=== PATIENT | male | born 1985 | race Caucasian/White ===

== ENCOUNTER 2019-11-23 20:10 | Emergency (ER) | payer SELFPAY ==
[~2019-11-23 20:10] MED LIST: Iopamidol-370 76% 500 ML 1 ML ONE
[2019-11-23 20:42] LABS: #Monocytes 0.4 thou/uL (0.11-0.59); #Neutrophils 2.9 thou/uL (1.40-6.50); %Basophils 0.7 % (0.0-1.0); %Eosinophils 0.4 % (0.0-10.0); %Lymphocytes 23.9 % (21.0-51.0); %Monocytes 8.5 % (0.0-10.0); %Neutrophils 66.4 % (42.0-75.0); Hemoglobin 16.6 g/dL (14.0-18.0); Mean Corpuscular HGB CONC 34.3 g/dL (32.0-36.0); Mean Corpuscular Hemoglobin 33.7 pg (27.0-31.0); Mean Corpuscular Volume 98.4 fL (78.0-98.0); Mean Platelet Volume 6.8 fL (7.4-10.4); Platelet Count 83 thou/uL (130-400); RBC Distribution Width 11.1 % (11.5-14.5); Red Blood Cell (RBC) Count 4.93 mill/uL (4.70-6.10); White Blood Cell (WBC) Count 4.3 thou/uL (4.8-10.8)
--- NOTE | 2019-11-23 20:50 | RAD ---
ONE VIEW CHEST: 11/23/19 HISTORY: Syncope. COMPARISON: None. FINDINGS: The cardiac silhouette and pulmonary vasculature are within normal limits for the portable technique of the study. The lungs are clear. Osseous structures have a normal appearance. IMPRESSION: No acute cardiopulmonary process. POS: YOLANDA
--- NOTE | 2019-11-23 21:00 | CT ---
CT HEAD WITHOUT CONTRAST: 11/23/19 HISTORY: Syncope. Ventricles have normal size and position. There is no evidence of intracranial mass or hemorrhage. No evidence of edema or infarct. Sinuses appear clear. IMPRESSION: No acute process. POS: AGW
[2019-11-23 21:05] LABS: ALT (SGPT) 102 U/L (8-55); AST (SGOT) 93 U/L (5-34); Albumin 4.4 g/dL (3.5-5.0); Alkaline Phosphatase 82 U/L (40-110); Anion Gap 24 mmol/L (10-20); BUN (Urea Nitrogen) 8 mg/dL (8.9-20.6); Bilirubin, Total 2.9 mg/dL (0.2-1.2); CK (CPK) 184 U/L (30-200); Calc. Creatinine Clearance 0 mL/min (70-130); Calcium 10.1 mg/dL (7.8-10.44); Carbon Dioxide 14 mmol/L (22-29); Chloride 95 mmol/L (98-107); Estimated GFR-MDRD Greater than 90; Globulin 3.6 g/dL (2.4-3.5); Glucose 123 mg/dL (70-105); Lipase 426 U/L (8-78); Potassium 3.8 mmol/L (3.5-5.1); Sodium 129 mmol/L (136-145)
[2019-11-23 21:08] LABS: Acetaminophen Less than 6.0 mcg/mL (10.0-30.0); Alcohol Less than 10 mg/dL (Less than 10); Salicylate Less than 8.0 mg/dL (15.0-30.0)
[2019-11-23 21:42] LABS: Bacteria/HPF None Seen HPF (None Seen); Bilirubin Negative (Negative); Blood, Urine 2+ (Negative); Clarity Clear (Clear); Glucose, Urine (Dipstick) Normal (Negative); Leukocyte Negative Leu/uL (Negative); Mucous/LPF 1+ LPF (<2+); Nitrite Negative (Negative); Protein, Urine (Dipstick) 200 mg/dL (Neg-Trace); Squamous Epithelial None Seen HPF (0-3); Urobilinogen 6 mg/dL (Less than 2); WBC/HPF 0-3 HPF (0-3)
[2019-11-23 21:47] LABS: Cocaine Metabolite Screen Not Detected (NotDetected); Medtox Reader # READER 1; Methamphetamine Not Detected (NotDetected); Opiate Screen Not Detected (NotDetected); Phencyclidine (PCP) Not Detected (NotDetected); THC/Cannabinoid Screen Not Detected (NotDetected)
[2019-11-23 21:48] LABS: Amphetamine Not Detected (NotDetected); Barbiturates Screen Not Detected (NotDetected); Benzodiazepine Screen Not Detected (NotDetected); Medtox Control Line Valid? VALID (VALID); Methadone Not Detected (NotDetected); Oxycodone Screen Not Detected (NotDetected); Tricyclic Screen Not Detected (NotDetected)
--- NOTE | 2019-11-24 07:30 | CT ---
CTA CHEST WITH CONTRAST: Axial tomograms were obtained following a pulmonary angio protocol with multiplanar reconstruction an d 3D postprocessing. INDICATION: Syncope. Elevated D-dimer. FINDINGS: Pulmonary arteries show adequate opacification. There is no evidence of pulmonary embolus. Thoracic aorta is unremarkable. Mediastinum unremarkable. The lungs are clear of infiltrate. No effusion. Images through the upper abdomen show evidence of hepatic steatosis. IMPRESSION: 1. No evidence of pulmonary embolus. 2. No acute lung process. POS: AGW
--- NOTE | 2019-11-24 14:33 | EKG ---
Test Reason : Blood Pressure : / mmHG Vent. Rate : 081 BPM Atrial Rate : 081 BPM P-R Int : 160 ms QRS Dur : 084 ms QT Int : 378 ms P-R-T Axes : 032 042 028 degrees QTc Int : 439 ms Normal sinus rhythm Normal ECG Confirmed by MANDY BOLTON, MAURA ([id number]), primer expeditor and drier KANDIS WINKLER ([id number]) on 11/24/2019 2:33:15 PM Referred By: Confirmed By:MAURA GALVAN MD
== END 2019-11-23 22:55 | disposition home or self-care (01) ==
LOC: ERS 20:10
DX: R55 Syncope and collapse (principal); K76.0 Fatty (change of) liver, not elsewhere classified; R79.89 Other specified abnormal findings of blood chemistry
CPT/HCPCS: 70450; 71045; 71275; 80053; 80306; 80307; 81003; 81015; 82550; 83690; 84146; 84443; 84484; 85025; 85379; 93005; 96360; Q9967

== ENCOUNTER 2019-12-25 17:00 | Inpatient (IN) | payer SELFPAY ==
[2019-12-25] MEDS ORDERED: Ondansetron PF 4 MG/2 ML Vial ONE (17:37)
[2019-12-25] MEDS ORDERED: Lorazepam 2 MG/ML VIAL ONE (17:37)
[2019-12-25] MEDS ORDERED: chlordiazePOXIDE HCl 25 MG CAP ONE (17:37)
[2019-12-25] MEDS ORDERED: Multivitamins, Adult 10 ML, Thiamine HCl 100 MG, Folic Acid 1 MG in Dextrose 5 %-0.45 %... IV SCH (18:00)
[2019-12-25 18:23] LABS: #Lymphocytes 0.7 thou/uL (1.20-3.40); #Monocytes 0.2 thou/uL (0.11-0.59); #Neutrophils 2.9 thou/uL (1.40-6.50); %Basophils 0.4 % (0.0-1.0); %Eosinophils 0.1 % (0.0-10.0); %Lymphocytes 17.9 % (21.0-51.0); %Neutrophils 76.6 % (42.0-75.0); Hemoglobin 16.3 g/dL (14.0-18.0); Mean Corpuscular HGB CONC 34.5 g/dL (32.0-36.0); Mean Corpuscular Volume 95.7 fL (78.0-98.0); Mean Platelet Volume 8.9 fL (7.4-10.4); Platelet Count 50 thou/uL (130-400); RBC Distribution Width 11.4 % (11.5-14.5); Red Blood Cell (RBC) Count 4.93 mill/uL (4.70-6.10); White Blood Cell (WBC) Count 3.8 thou/uL (4.8-10.8)
[2019-12-25 18:42] LABS: ALT (SGPT) 88 U/L (8-55); AST (SGOT) 99 U/L (5-34); Albumin 4.4 g/dL (3.5-5.0); Alkaline Phosphatase 96 U/L (40-110); Anion Gap 21 mmol/L (10-20); BUN (Urea Nitrogen) 12 mg/dL (8.9-20.6); Calc. Creatinine Clearance 0 mL/min (70-130); Calcium 10.2 mg/dL (7.8-10.44); Carbon Dioxide 21 mmol/L (22-29); Chloride 92 mmol/L (98-107); Estimated GFR-MDRD 89; Globulin 4.2 g/dL (2.4-3.5); Glucose 133 mg/dL (70-105); Lipase 407 U/L (8-78); Magnesium 1.7 mg/dL (1.6-2.6); Potassium 3.5 mmol/L (3.5-5.1); Protein, Total 8.6 g/dL (6.0-8.3); Sodium 130 mmol/L (136-145)
[2019-12-25 18:44] LABS: Acetaminophen Less than 6.0 mcg/mL (10.0-30.0); Alcohol Less than 10 mg/dL (Less than 10); Salicylate Less than 8.0 mg/dL (15.0-30.0)
--- NOTE | 2019-12-25 20:04 | CT ---
CT BRAIN WITHOUT CONTRAST: History: Altered mental status Comparison: 11-23-2019 FINDINGS: No acute hemorrhage or infarct. No midline shift of mass effect. Ventricular size and extraaxial CSF spaces are normal. Calvarium is intact. The paranasal sinuses and mastoids are relatively clear aside from small volume fluid in the left mastoids. IMPRESSION: No acute intracranial abnormality. POS: HOME
[2019-12-25 20:27] LABS: PTT 27.3 sec (22.9-36.1); Prothrombin Time 13.1 sec (12.0-14.7)
--- NOTE | 2019-12-25 20:49 | CT ---
CT ABDOMEN AND PELVIS WITH CONTRAST: History: Pancreatitis Comparison: None FINDINGS: Lung bases appear relatively clear. No pericardial effusion. Diffuse hepatic steatosis, high grade. Mild fatty atrophy of the pancreatic tail. Chronic appearing f at inflammation adjacent to the pancreatic tail, might be from prior bouts of pancreatitis. No hydron ephrosis. The aortoiliac contour is non-aneurysmal. No dilated loops of large or small bowel. Moderate left L5-S1 facet joint changes. There are compression deformities of the mid and lower thoracic spine. These are incomplete burst fra ctures. IMPRESSION: 1. Mild scarring of the peripancreatic fat around the pancreatic tail with pancreatic tail atrophy du e to prior bouts of pancreatitis. 2. Diffuse hepatic steatosis. 3. Incompletely evaluated healing thoracic spine fractures, incomplete burst fractures. POS: HOME
[2019-12-25 21:02] LABS: Bacteria/HPF None Seen HPF (None Seen); Bilirubin 1+ (Negative); Blood, Urine 1+ (Negative); Clarity Clear (Clear); Glucose, Urine (Dipstick) Normal (Negative); Leukocyte Negative Leu/uL (Negative); Mucous/LPF Rare LPF (<2+); Nitrite Negative (Negative); Protein, Urine (Dipstick) 50 mg/dL (Neg-Trace); Squamous Epithelial None Seen HPF (0-3); Urobilinogen 6 mg/dL (Less than 2); WBC/HPF 0-3 HPF (0-3)
[2019-12-25 21:09] LABS: Amphetamine Not Detected (NotDetected); Barbiturates Screen Not Detected (NotDetected); Benzodiazepine Screen Detected (NotDetected); Cocaine Metabolite Screen Not Detected (NotDetected); Medtox Reader # READER 4; Methadone Not Detected (NotDetected); Methamphetamine Not Detected (NotDetected); Opiate Screen Not Detected (NotDetected); Oxycodone Screen Not Detected (NotDetected); Phencyclidine (PCP) Not Detected (NotDetected); THC/Cannabinoid Screen Not Detected (NotDetected); Tricyclic Screen Not Detected (NotDetected)
[2019-12-25 21:10] LABS: Medtox Control Line Valid? VALID (VALID)
[2019-12-25] MEDS ORDERED: Acetaminophen 325 MG TAB PO PRN (21:33)
[2019-12-25] MEDS ORDERED: Bisacodyl 5 MG TAB PO PRN (21:33)
[2019-12-25] MEDS ORDERED: Senokot S 8.6-50 MG TAB PO PRN (21:33)
[2019-12-25] MEDS ORDERED: Calcium Carbonate 500 MG ChewTAB PO PRN (21:33)
[2019-12-25] MEDS ORDERED: Lorazepam 2 MG/ML VIAL SLOW IVP PRN (21:40)
[2019-12-25] MEDS ORDERED: Ondansetron PF 4 MG/2 ML Vial IVP PRN (21:42)
[2019-12-25] MEDS ORDERED: Diazepam 5 MG TAB PO PRN (21:56)
[2019-12-25] MEDS ORDERED: Thiamine HCl 200 MG/2 ML VIAL IM SCH (22:00)
[2019-12-25 22:34] VITALS: BMI 32.6
--- NOTE | 2019-12-25 23:02 | HP ---
PRIMARY CARE PHYSICIAN: Daniel Delgado MD CHIEF COMPLAINT: Seizures x2. HISTORY OF PRESENT ILLNESS: The patient is a 34-year-old male with a past medical history significant for alcohol abuse who presents to the ER for the above complaint. Majority of the HPI was taken from the patient's mother at bedside. The mother reports that the patient had 2 seizure-like episodes today, while at home. She reports that the patient would yell and scream, shake his hands in the air and start foaming at the mouth. She reports that this activity lasted approximately 20 seconds. After this activity, the patient would be "out of it for approximately 20 minutes," after which he return to baseline function. Mother also reports that the patient has been falling more frequently at home. Some of these falls were unwitnessed. She would hear him scream out, hear a "thud", then find him on the floor at home. She also reports multiple bruises and contusions all over his body. Mother reports the patient has a strong history of alcohol abuse. She reports that he has been drinking approximately half a bottle of Tequila per day for the past several days. Last drink she thinks was in the last 36 hours to 48 hours. The patient denies drinking Tequila. He admits to drinking 12 beers per day. He reports that he used to drink [place] and he has switch to a beer called Boone because of it's high alcohol content of 6%. The patient reports associated nausea and vomiting over the past several days. He has had some decreased appetite and decreased oral intake. Denies headache or neck pain. Denies chest pain or heart palpitations. Denies abdominal pain or diarrhea. In the ER, the patient's vital signs were taken. The patient was found to be tachycardic in the 130s and tachypneic with respiratory rate of 24, and 98% on room air. He was afebrile. EKG showed sinus tachycardia with a heart rate of 107. CT of the head was negative for any acute intracranial process. CT of the abdomen showed mild scarring of the peripancreatic fat around the pancreatic tail with pancreatic tail atrophy due to prior bouts of pancreatitis. It also showed diffuse hepatic steatosis and it showed incompletely evaluated healing thoracic spine fractures, incomplete burst fractures. The patient's lipase was 407. The patient's blood alcohol was less than 10. Had a magnesium of 1.7 and sodium of 130. LFTs were within normal range, and platelets of 50. The patient was given a banana bag, Librium, Ativan, Zofran and a liter of fluid. ALLERGIES: NO KNOWN DRUG ALLERGIES. HOME MEDICATIONS: There are no home medications. PAST MEDICAL HISTORY: Alcohol abuse. PAST SURGICAL HISTORY: No surgical history. SOCIAL HISTORY: The patient lives with his parents. He is unemployed, living at home. He is a heavy drinker, about a half a bottle of Tequila per day and a 12 pack of beer per day. Denies any tobacco or smoking history. Denies any illicit drug use. He ambulates without any assistive devices. FAMILY HISTORY: Family history is noncontributory to this case. REVIEW OF SYSTEMS: All other review of systems are negative unless otherwise noted in the HPI. PHYSICAL EXAMINATION: VITAL SIGNS: Temperature 97.6, blood pressure 120/91, heart rate of 130, respirations 24, and 98% on room air. EKG was sinus tach at 107. Constitutional: Alert, oriented to person, place and time. Mildly agitated. No acute distress. Head: atraumatic, normocephalic Eyes: PERRL, EOMI, sclera non icteric ENT: patent nares, oropharynx clear, uvula midline, MMM Neck: supple, trachea midline Respiratory/Chest: RR even and unlabored, non wheezes, rhonchi or rales Cardiovascular: Sinus tachycardia, no murmurs rubs or gallops Abdomen: soft, non tender, active BS, no guarding, no rigidity Back: No CVAT, normal ROM Upper extremities: normal ROM, normal sensation, palpable radial pulses Lower extremities: normal ROM, normal sensation, palpable pedal pulses Neuro: Flat affect, mildly agitated, CNII-VII intact. Skin: multiple abrasions and bruising to shoulders, elbows, knees and shins. DIAGNOSTIC STUDIES: CT of the brain was negative for any acute process. CT of the abdomen showed some mild scarring of the peripancreatic fat around the pancreatic tail with pancreatic tail atrophy due to prior bouts of pancreatitis and it showed some diffuse hepatic steatosis. The patient's blood alcohol was less than 10. Lipase was 407. Sodium was 130, potassium 3.5, chloride 92, CO2 of 21, BUN 12, creatinine 0.98, glucose 133, GFR of 89, alkaline phosphatase 96, AST 99, ALT 88 , and mag 1.7. PT 13.1, PTT 27.3, and INR 1.0. UA had ketones 1+ blood, 1+ bilirubin, 6 urobilinogen, 4 to 6 rbc's, and specific gravity 1.030. His urine toxicology, acetaminophen level, and salicylate levels were unremarkable. IMPRESSION AND PLAN: 1. Alcohol withdrawal. We will admit the patient to telemetry floor inpatient status. Expected length of stay greater than 2 midnights. The patient presented tachycardic and tachypneic and slightly agitated per ER report. Upon exam, he was calm. Mother reports last drink was in the last 36 to 48 hours. The patient's alcohol level was less than 10. We will initiate ASE protocol. Give IV fluids and banana bag. We will check B12, thiamine, and folate levels. We will start B12, thiamine, folate, and multivitamins. We will initiate seizure precautions and fall precautions. We will give scheduled Librium and will have Ativan p.r.n. We will consult Case Management. 2. Seizures likely related to alcohol withdrawal. The patient has no history of prior seizure activity with any alcohol cessation. CT of the brain was negative for any acute abnormality, intracranial abnormality. We will initiate seizure & fall precautions. We will have Ativan p.r.n. for seizures. 3. Pancreatitis. likely alcohol induced. Upon exam, the patient in no acute distress. Abdomen is soft and nontender. CT of the abdomen did show some mild scarring of the peripancreatic fat around the pancreatic tail and some pancreatic tail atrophy from prior bouts of pancreatitis, also showed some hepatic steatosis. The patient presented with a lipase level of 407. We will make the patient n.p.o. We will give IV fluids. We will give analgesia as needed p.r.n. We will get a right upper quadrant ultrasound. We will check a fasting lipid in the a.m. and recheck a lipase in the a.m. 4. Hyponatremia, mild. The patient had a sodium of 130. We will give IV fluids and recheck level in the a.m. 5. Hypomagnesium, relatively low at 1.7. The patient will replace magnesium per [facility] protocol and we will recheck level in the a.m. 6. Thrombocytopenia. Platelets were 50,000. LFTs within normal range. INR was within normal range. No pharmaco deep venous thrombosis prophylaxis. We will use SCDs for deep venous thrombosis prophylaxis. We will recheck CBC in a.m. 7. Consult physical therapy. No pharmaco deep venous thrombosis prophylaxis. SCDs for deep venous thrombosis prophylaxis. Protonix for gastrointestinal prophylaxis. The patient is a full code. His MPOA is his mother, Gillian Messina, her #[phone]. 8. Discussed the case with Dr. Aleman. Job ID: [id number] [facility] HOSPITALPavel
[2019-12-25] MEDS: Sodium Chloride 0.9% 1,000 ML IV SCH (23:37)
[2019-12-26] MEDS: Lorazepam 2 MG/ML VIAL SLOW IVP PRN ×2 (02:36→13:01)
[2019-12-26] MEDS: Diazepam 5 MG TAB PO PRN ×3 (04:12→11:24)
[2019-12-26 04:54] LABS: #Lymphocytes 0.6 thou/uL (1.20-3.40); #Monocytes 0.2 thou/uL (0.11-0.59); #Neutrophils 1.9 thou/uL (1.40-6.50); %Basophils 0.7 % (0.0-1.0); %Eosinophils 0.5 % (0.0-10.0); %Lymphocytes 21.7 % (21.0-51.0); %Monocytes 7.1 % (0.0-10.0); Hemoglobin 14.1 g/dL (14.0-18.0); Mean Corpuscular HGB CONC 33.5 g/dL (32.0-36.0); Mean Corpuscular Hemoglobin 32.4 pg (27.0-31.0); Mean Corpuscular Volume 96.7 fL (78.0-98.0); Mean Platelet Volume 8.5 fL (7.4-10.4); Platelet Count 44 thou/uL (130-400); RBC Distribution Width 11.2 % (11.5-14.5); Red Blood Cell (RBC) Count 4.34 mill/uL (4.70-6.10); White Blood Cell (WBC) Count 2.7 thou/uL (4.8-10.8)
[2019-12-26 05:02] LABS: ALT (SGPT) 63 U/L (8-55); AST (SGOT) 63 U/L (5-34); Albumin 3.8 g/dL (3.5-5.0); Alkaline Phosphatase 74 U/L (40-110); Anion Gap 15 mmol/L (10-20); BUN (Urea Nitrogen) 10 mg/dL (8.9-20.6); Bilirubin, Total 2.5 mg/dL (0.2-1.2); Calc. Creatinine Clearance 228 mL/min (70-130); Carbon Dioxide 23 mmol/L (22-29); Cardiac Risk 1.9 (Less than 4.5); Chloride 97 mmol/L (98-107); Cholesterol 121 mg/dl (< 200 Desired); Estimated GFR-MDRD Greater than 90; Globulin 3.2 g/dL (2.4-3.5); Glucose 86 mg/dL (70-105); HDL Cholesterol 64 mg/dL (>60 Neg Risk); LDL Cholesterol, Calculated 47 mg/dL; Lipase 292 U/L (8-78); Sodium 132 mmol/L (136-145); Triglycerides 51 mg/dL (Less than 150)
[2019-12-26 05:07] LABS: Potassium 2.8 mmol/L (3.5-5.1)
[2019-12-26] MEDS: Potassium Chloride 20 MEQ in Premix Bag 1 BAG IVPB SCH ×2 (05:33→08:22)
[2019-12-26] MEDS: Multivit, Chewable SF 1 TAB PO SCH (08:19)
[2019-12-26] MEDS: chlordiazePOXIDE HCl 25 MG CAP PO SCH ×3 (08:19→20:32)
[2019-12-26] MEDS: Thiamine 100 MG TAB PO SCH (08:19)
[2019-12-26] MEDS: Magnesium Oxide 400 MG TAB PO SCH (08:19)
[2019-12-26] MEDS: Cyanocobalamin (Vitamin B-12) 1,000 MCG TAB PO SCH (08:20)
[2019-12-26] MEDS: Folic Acid 1 MG TAB PO SCH (08:20)
[2019-12-26] MEDS: Sodium Chloride 0.9% 1,000 ML IV SCH ×2 (08:28→20:32)
[2019-12-26] MEDS: Pantoprazole 40 MG VIAL IVP SCH (08:47)
--- NOTE | 2019-12-26 08:59 | ULT ---
GALLBLADDER ULTRASOUND: Date: 12/26/2019 HISTORY: Right upper quadrant pain. FINDINGS: Real-time imaging of the right upper quadrant shows echogenic nonshadowing material within the gallbl adder, compatible with sludge. Common duct is 5.0 mm. Liver measures 21.7 cm in length and is of diff use increased echogenicity. Right kidney is normal in size and not obstructed. Pancreas is obscured. IMPRESSION: 1. Gallbladder sludge. Technologist reports a negative ultrasound Rousseau's sign. 2. Diffuse fatty changes of a slightly enlarged liver. POS: ADRIANA
[2019-12-26] MEDS ORDERED: Haloperidol Lactate 5 MG/ML VIAL SLOW IVP PRN (14:38)
--- NOTE | 2019-12-26 14:58 | PDOC.HOSPP ---
- Subjective Encounter Date: 12/26/19 Subjective: Feels ok. Denies problems. Had not eaten due to the abd us and pancreatitis. Denies abd pain. - Objective Vital Signs & Weight: Vital Signs (12 hours) Temp Pulse Resp BP BP BP Pulse Ox 12/26/19 13:59 99.7 F H 100 25 H 124/7 L 97 12/26/19 11:09 99.5 F 97 16 131/86 131/86 100 12/26/19 08:12 98.0 F 102 H 19 135/94 H 135/94 H 99 12/26/19 03:30 116/70 12/26/19 03:09 98.4 F 100 14 116/70 98 Weight Admit Weight 254 lb 3.2 oz Weight 254 lb 3.2 oz Result Diagrams: 12/26/19 04:21 12/26/19 04:21 Hospitalist ROS - Medication Medications: Active Medications Generic Name Dose Route Start Last Admin Trade Name Freq PRN Reason Stop Dose Admin Chlordiazepoxide HCl 25 mg 12/26/19 09:00 12/26/19 08:19 Librium PO 25 mg TID PAIRSA Administration Cyanocobalamin 1,000 mcg 12/26/19 09:00 12/26/19 08:20 Vitamin B-12 PO 1,000 mcg DAILY PARISA Administration Diazepam 5 mg 12/26/19 04:00 12/26/19 11:24 Valium PO 5 mg Q4H PRN Administration FOR ASE 10 OR GREATER Folic Acid 1 mg 12/26/19 09:00 12/26/19 08:20 Folvite PO 1 mg DAILY PARISA Administration Haloperidol Lactate 5 mg 12/26/19 14:38 12/26/19 14:46 Haldol SLOW IVP 5 mg Q4H PRN Administration Agitation Sodium Chloride 1,000 mls @ 125 mls/hr 12/25/19 21:45 12/26/19 08:28 Normal Saline 0.9% IV 1,000 mls .Q8H PARISA Administration Lorazepam 2 mg 12/25/19 21:41 12/26/19 13:01 Ativan SLOW IVP 2 mg Q4H PRN Administration Anxiety/Agitation Magnesium Oxide 400 mg 12/26/19 09:00 12/26/19 08:19 Magnesium Oxide PO 400 mg DAILY PARISA Administration Multivitamins 1 tab 12/26/19 09:00 12/26/19 08:19 Multivit, Chewable Sf PO 1 tab DAILY PARISA Administration Pantoprazole Sodium 40 mg 12/26/19 09:00 12/26/19 08:47 Protonix IVP 40 mg DAILY PARISA Administration Thiamine HCl 100 mg 12/26/19 09:00 12/26/19 08:19 Thiamine PO 100 mg DAILY PARISA Administration - Exam General Appearance: NAD, awake alert Heart: RRR, no murmur, no gallops, no rubs, normal peripheral pulses Respiratory: CTAB, no wheezes, no rales, no ronchi, normal chest expansion, no tachypnea, normal percussion Gastrointestinal: soft, non-tender, non-distended, normal bowel sounds, no palpable masses, no hepatomegaly, no splenomegaly, no bruit Extremities: no cyanosis, no clubbing, no edema Skin: normal turgor Neurological: no focal deficits Neurological - other findings: Shaky. Very slightly confused. Musculoskeletal: generalized weakness Psychiatric - other findings: a little anxious. Hosp A/P (1) Alcohol withdrawal Code(s): F10.239 - ALCOHOL DEPENDENCE WITH WITHDRAWAL, UNSPECIFIED Status: Acute (2) Alcohol withdrawal seizure Code(s): F10.239 - ALCOHOL DEPENDENCE WITH WITHDRAWAL, UNSPECIFIED; R56.9 - UNSPECIFIED CONVULSIONS Status: Acute (3) Thrombocytopenia Code(s): D69.6 - THROMBOCYTOPENIA, UNSPECIFIED Status: Acute (4) Pancreatitis Code(s): K85.90 - ACUTE PANCREATITIS WITHOUT NECROSIS OR INFECTION, UNSP Status: Acute (5) Compression fracture of thoracic vertebra Code(s): S22.000A - WEDGE COMPRESSION FRACTURE OF UNSP THORACIC VERTEBRA, INIT Status: Acute (6) Hyponatremia Code(s): E87.1 - HYPO-OSMOLALITY AND HYPONATREMIA Status: Acute (7) Alcoholic fatty liver Code(s): K70.0 - ALCOHOLIC FATTY LIVER Status: Acute - Plan ETOH W/D: Patient reports heavy alcohol use since he was in college. Continue ASE protocol, Librium. PRN Bzd's. B12 and Folate levels were normal. Continue supplements. W/D seizures: No anti-epileptics indicated. Continue Bzd's. Pancreatitis: Seems to be asymptomatic. Evidence of prior bouts on CT. May have a chronic component. Lipase is coming down. Try some clear liquids. Thrombocytopenia: Secondary to EtOH abuse. Compression Fx of T spine: Presumably related to falls. Will need MRI when stable to rule out other pathology. Very young to have compression fractures. Will check vitamin D level. Do not sound unstable. Alcoholism: Long discussion with the patient and his mother who is in the room as well. Discussed the risks of W/D, DT's. Will take a little time to get through this. Explained the damage to the liver and the pancreas. Prognosis will be poor if he does not quit now. Seems interested in quitting, but not sure he is committed to it. Will have CM discuss available resources when he is more stable.
--- NOTE | 2019-12-26 15:41 | CT ---
CT HEAD WITHOUT IV CONTRAST COMPARISON: 12/25/2019 HISTORY: Injury after fall. Patient very agitated, altered mental status. TECHNIQUE: Axial CT imaging at 5 mm intervals from vertex through skull base without contrast FINDINGS: There is no evidence of an acute infarction, hemorrhage, mass effect, or midline shift. The ventricul ar system is normal in size, shape, and position. Mucosal thickening is seen in the left maxillary antrum as well as in a few ethmoidal air cells. Osseous structures appear intact. There has been no significant interval change when compared to the recent study on 12/25/2019. IMPRESSION: 1. No acute intracranial abnormality demonstrated.
--- NOTE | 2019-12-26 22:06 | PDOC.EVN ---
Event Note - Event Note Event Note: Patient became more anxious and agitated. ASE protocol PRN's used. Patient got out of bed on his own and reportedly fell. No witnessed injury, but patient indicated he hit his head. CT was ordered. Became combative and required restraints. Haldol was ordered and worked well. Patient was able to get the CT done. CT was unremarkable.
[2019-12-27 04:42] LABS: ALT (SGPT) 49 U/L (8-55); AST (SGOT) 42 U/L (5-34); Albumin 3.5 g/dL (3.5-5.0); Alkaline Phosphatase 72 U/L (40-110); Anion Gap 15 mmol/L (10-20); BUN (Urea Nitrogen) 8 mg/dL (8.9-20.6); Bilirubin, Total 2.1 mg/dL (0.2-1.2); Calc. Creatinine Clearance 254 mL/min (70-130); Calcium 8.9 mg/dL (7.8-10.44); Carbon Dioxide 21 mmol/L (22-29); Chloride 101 mmol/L (98-107); Estimated GFR-MDRD Greater than 90; Globulin 3.1 g/dL (2.4-3.5); Glucose 72 mg/dL (70-105); Potassium 3.3 mmol/L (3.5-5.1); Protein, Total 6.6 g/dL (6.0-8.3); Sodium 134 mmol/L (136-145)
[2019-12-27] MEDS: Sodium Chloride 0.9% 1,000 ML IV SCH ×3 (05:44→23:47)
[2019-12-27] MEDS: Magnesium Oxide 400 MG TAB PO SCH (07:51)
[2019-12-27] MEDS: Multivit, Chewable SF 1 TAB PO SCH (07:51)
[2019-12-27] MEDS: Pantoprazole 40 MG VIAL IVP SCH (07:51)
[2019-12-27] MEDS: Folic Acid 1 MG TAB PO SCH (07:52)
[2019-12-27] MEDS: Thiamine 100 MG TAB PO SCH (07:52)
[2019-12-27] MEDS: Cyanocobalamin (Vitamin B-12) 1,000 MCG TAB PO SCH (07:52)
[2019-12-27] MEDS: chlordiazePOXIDE HCl 25 MG CAP PO SCH ×3 (07:52→20:03)
--- NOTE | 2019-12-27 23:06 | PDOC.HOSPP ---
- Subjective Encounter Date: 12/27/19 Subjective: Doing much better today. Doesn't recall much of yesterday afternoon. Denies any back pain. Has had some falls, but no specific back injury. - Objective Vital Signs & Weight: Vital Signs (12 hours) Temp Pulse Resp BP BP BP Pulse Ox 12/27/19 18:53 98.0 F 103 H 16 125/85 125/85 100 12/27/19 15:51 99.6 F 93 18 130/83 130/83 99 Weight Admit Weight 254 lb 3.2 oz Weight 254 lb 3.2 oz I&O: 12/26/19 12/27/19 12/28/19 06:59 06:59 06:59 Intake Total 3245 2920 Output Total 980 900 Balance 5 2019 Result Diagrams: 12/26/19 04:21 12/27/19 03:53 Hospitalist ROS - Medication Medications: Active Medications Generic Name Dose Route Start Last Admin Trade Name Freq PRN Reason Stop Dose Admin Chlordiazepoxide HCl 25 mg 12/26/19 09:00 12/27/19 20:03 Librium PO 25 mg TID PARISA Administration Cyanocobalamin 1,000 mcg 12/26/19 09:00 12/27/19 07:52 Vitamin B-12 PO 1,000 mcg DAILY PARISA Administration Diazepam 5 mg 12/26/19 04:00 12/26/19 11:24 Valium PO 5 mg Q4H PRN Administration FOR ASE 10 OR GREATER Folic Acid 1 mg 12/26/19 09:00 12/27/19 07:52 Folvite PO 1 mg DAILY PARISA Administration Haloperidol Lactate 5 mg 12/26/19 14:38 12/26/19 14:46 Haldol SLOW IVP 5 mg Q4H PRN Administration Agitation Sodium Chloride 1,000 mls @ 125 mls/hr 12/25/19 21:45 12/27/19 13:46 Normal Saline 0.9% IV 1,000 mls .Q8H PARISA Administration Lorazepam 2 mg 12/25/19 21:41 12/26/19 13:01 Ativan SLOW IVP 2 mg Q4H PRN Administration Anxiety/Agitation Magnesium Oxide 400 mg 12/26/19 09:00 12/27/19 07:51 Magnesium Oxide PO 400 mg DAILY PARISA Administration Multivitamins 1 tab 12/26/19 09:00 12/27/19 07:51 Multivit, Chewable Sf PO 1 tab DAILY PARISA Administration Pantoprazole Sodium 40 mg 12/26/19 09:00 12/27/19 07:51 Protonix IVP 40 mg DAILY PARISA Administration Thiamine HCl 100 mg 12/26/19 09:00 12/27/19 07:52 Thiamine PO 100 mg DAILY PARISA Administration - Exam Heart: RRR, no murmur, no gallops, no rubs, normal peripheral pulses Respiratory: CTAB, no wheezes, no rales, no ronchi, normal chest expansion, no tachypnea, normal percussion Gastrointestinal: soft, non-tender, non-distended, normal bowel sounds, no palpable masses, no hepatomegaly, no splenomegaly, no bruit Extremities: no cyanosis, no clubbing, no edema Extremities - other findings: Bruise below the left knee. Skin: normal turgor Hosp A/P (1) Alcohol withdrawal Code(s): F10.239 - ALCOHOL DEPENDENCE WITH WITHDRAWAL, UNSPECIFIED Status: Acute (2) Alcohol withdrawal seizure Code(s): F10.239 - ALCOHOL DEPENDENCE WITH WITHDRAWAL, UNSPECIFIED; R56.9 - UNSPECIFIED CONVULSIONS Status: Acute (3) Thrombocytopenia Code(s): D69.6 - THROMBOCYTOPENIA, UNSPECIFIED Status: Acute (4) Pancreatitis Code(s): K85.90 - ACUTE PANCREATITIS WITHOUT NECROSIS OR INFECTION, UNSP Status: Acute (5) Compression fracture of thoracic vertebra Code(s): S22.000A - WEDGE COMPRESSION FRACTURE OF UNSP THORACIC VERTEBRA, INIT Status: Acute (6) Hyponatremia Code(s): E87.1 - HYPO-OSMOLALITY AND HYPONATREMIA Status: Acute (7) Alcoholic fatty liver Code(s): K70.0 - ALCOHOLIC FATTY LIVER Status: Acute - Plan ETOH W/D: Patient reports heavy alcohol use since he was in college. Continue ASE protocol, Librium. PRN Bzd's. B12 and Folate levels were normal. Continue supplements. Improved. W/D seizures: No anti-epileptics indicated. Continue Bzd's. Pancreatitis: Seems to be asymptomatic. Evidence of prior bouts on CT. May have a chronic component. Lipase is coming down. Try some clear liquids. Thrombocytopenia: Secondary to EtOH abuse. Compression Fx of T spine: Presumably related to falls. Will need MRI when stable to rule out other pathology. Very young to have compression fractures. Will check vitamin D level. Do not sound unstable. Alcoholism: Discussed with CM. Will give him some information regarding alcohol programs.
[2019-12-27] MEDS ORDERED: Sodium Chloride 0.9% 1,000 ML IV SCH (23:20)
[2019-12-27] MEDS: Lorazepam 2 MG/ML VIAL SLOW IVP PRN (23:51)
[2019-12-28] MEDS: Diazepam 5 MG TAB PO PRN (02:40)
[2019-12-28 04:47] LABS: #Lymphocytes 0.7 thou/uL (1.20-3.40); #Monocytes 0.4 thou/uL (0.11-0.59); #Neutrophils 1.7 thou/uL (1.40-6.50); %Basophils 1.4 % (0.0-1.0); %Eosinophils 1.1 % (0.0-10.0); %Monocytes 14.5 % (0.0-10.0); Hemoglobin 12.9 g/dL (14.0-18.0); Mean Corpuscular HGB CONC 35.9 g/dL (32.0-36.0); Mean Corpuscular Hemoglobin 34.5 pg (27.0-31.0); Mean Corpuscular Volume 96.2 fL (78.0-98.0); Mean Platelet Volume 7.1 fL (7.4-10.4); Platelet Count 54 thou/uL (130-400); RBC Distribution Width 11.2 % (11.5-14.5); Red Blood Cell (RBC) Count 3.74 mill/uL (4.70-6.10); White Blood Cell (WBC) Count 2.9 thou/uL (4.8-10.8)
[2019-12-28 05:00] LABS: ALT (SGPT) 41 U/L (8-55); AST (SGOT) 37 U/L (5-34); Albumin 3.5 g/dL (3.5-5.0); Alkaline Phosphatase 74 U/L (40-110); Anion Gap 14 mmol/L (10-20); BUN (Urea Nitrogen) 4 mg/dL (8.9-20.6); Bilirubin, Total 1.7 mg/dL (0.2-1.2); Calc. Creatinine Clearance 247 mL/min (70-130); Calcium 8.9 mg/dL (7.8-10.44); Carbon Dioxide 23 mmol/L (22-29); Chloride 100 mmol/L (98-107); Estimated GFR-MDRD Greater than 90; Globulin 3.1 g/dL (2.4-3.5); Glucose 79 mg/dL (70-105); Potassium 3.1 mmol/L (3.5-5.1); Protein, Total 6.6 g/dL (6.0-8.3); Sodium 134 mmol/L (136-145)
[2019-12-28] MEDS: Folic Acid 1 MG TAB PO SCH (09:07)
[2019-12-28] MEDS: Magnesium Oxide 400 MG TAB PO SCH (09:07)
[2019-12-28] MEDS: Pantoprazole 40 MG VIAL IVP SCH (09:07)
[2019-12-28] MEDS: Multivit, Chewable SF 1 TAB PO SCH (09:07)
[2019-12-28] MEDS: Cyanocobalamin (Vitamin B-12) 1,000 MCG TAB PO SCH (09:07)
[2019-12-28] MEDS: Thiamine 100 MG TAB PO SCH (09:07)
[2019-12-28] MEDS: chlordiazePOXIDE HCl 25 MG CAP PO SCH (09:10)
--- NOTE | 2019-12-28 10:38 | MRI ---
MRI THORACIC SPINE: Date: 12/28/2019 INDICATION: Recent fall with injury. CT abdomen and pelvis from 12/25/2019 described compression fractures of the thoracic spine which were incompletely evaluated. FINDINGS: There is evidence of mild acute compression fractures involving the T6, T7, T8, T9, and T10 vertebra. All these vertebral bodies exhibit edema and mild anterior wedge compressions. Superior end place co mpression is more prominent at T7. Posterior height is preserved and posterior alignment is maintained. There may be minimal retropulsio n of the posterior superior corner of T7. At T6-T7, there is a mild diffuse disc bulge flattening the thecal sac and effacing anterior subarachnoid space. No cord impingement. No central canal stenosis. Otherwise, no significant disc bulge or protrusion. No other evidence of significant retropulsion. IMPRESSION: Evidence of acute mild compression deformities involving T6, T7, T8, T9, and T10 vertebra. All of the se vertebral bodies exhibit edema and mild anterior wedge compression. Superior end plate compression is more prominent at T7 and there is mild posterior disc bulge and retropulsion at T6-T7 as describe d above. Recommend continued follow-up plain film evaluation of the thoracic spine to assess progression of he ight loss and compression of these vertebral bodies. POS: AGW
[2019-12-28 11:14] VITALS: BP 132/95; TEMP 98.1
--- NOTE | 2019-12-28 22:33 | DIS ---
DATE OF ADMISSION: 12/25/2019 DATE OF DISCHARGE: 12/28/2019 DISCHARGE DIAGNOSES: 1. Acute alcohol withdrawal. 2. Alcohol withdrawal seizures. 3. Vertebral wedge compression fractures T6 through T10. 4. Thrombocytopenia. 5. Pancreatitis. 6. Hyponatremia likely due to beer potomania. 7. Alcoholic fatty liver. HISTORY OF PRESENT ILLNESS: This patient is a 34-year-old male with a history of alcoholism since he was in college. The patient subsequently had stopped drinking about 36 hours before presenting to the hospital. The patient had two seizure-like episodes at home. The patient in the ER was noted to be tachycardic, a bit tachypneic, had a negative head CT. CT of the abdomen which showed mild scarring of the peripancreatic fat around the pancreatic tail with some atrophy due to prior bouts of pancreatitis and scarring with some evidence of thoracic spine incomplete burst fractures. The lipase was 407. Sodium was 130. HOSPITAL COURSE: The patient was admitted to the hospital for alcohol withdrawal seizures in acute alcohol withdrawal. He was started on Chava protocol and given hydration. The patient had no further seizure episodes, although he was a bit tremulous. He did the following day, tried to get out of bed and stated that he got tangled in his IV line, but apparently did fall. There was no witnessed injury, but the patient reported that he hit his head. A subsequent CT scan of the brain was obtained, which was unremarkable. Abdominal ultrasound was obtained, which showed gallbladder sludge with negative Rousseau sign, diffuse fatty changes and an enlarged liver. His lipase levels came down. He was able to advance his diet and had no abdominal pain at all and was able to get up with Physical Therapy and still had a bit of ataxic gait. He had MRI of his T-spine, which showed the wedge compression fractures at T6 through T10 with mild retropulsion of the disk without compression of the cord noted. Had a long conversation with the patient, his mother and his father at various times regarding his overall situation. He is interested in alcohol cessation and he was given information regarding cessation programs and rehab. He understands that he is still at significant risk for falling. However, he declines a walker or physical therapy. He is also made aware of his risk for potential recurrent pancreatitis episodes, which will certainly be substantially worse if he continues to drink while he does have pancreatic and liver damage. If he is to quit drinking at this time, it would likely halt further damage of the liver, although recurrent pancreatitis is unpredictable with that. The patient was felt to be stable for discharge. PHYSICAL EXAMINATION: VITAL SIGNS: On the day of discharge, temperature 98.1, pulse 105, respirations 16 to 20, O2 saturation 100% on room air, BP is 132/95. GENERAL: He is awake, alert, age appropriate. No distress. HEENT: Does reveal some persistent very mild nystagmus. HEART: Regular rate and rhythm. LUNGS: Clear. ABDOMEN: Benign. EXTREMITIES: With no edema. DISPOSITION: The patient is discharged to home. He is in a stable and slightly guarded condition. He will have an activity as tolerated. Again, the patient was encouraged to consider a walker. However, he made it very clear that he would not use that even if it was provided. He is to have a regular diet. Medications include Librium 25 mg p.o. b.i.d. The patient was given a 10-day course after the patient monitoring program was consulted. He is to follow up with Dr. Delgado in 7 days at which time he may need to continue to taper his Librium. The patient can return to the hospital at anytime should he have the need to do so. TIME SPENT: Total time in discharge activities is greater than 35 minutes. Job ID: [id number]
--- NOTE | 2019-12-30 11:43 | PQF ---
[facility] [employer] HENRI Harrington DAVID R MD [id number] CLINICAL DOCUMENTATION CLARIFICATION FORM: POST DISCHARGE Addendum to original discharge summary date: ____ Late entry note date: __ DATE: 12/30/2019 ATTN: William Agulia Please exercise your independent, professional judgment in responding to the clarification form. Clinical indicators are provided on the bottom of this form for your review Kindly clarify the acuity of pancreatitis Please check appropriate box(s): [x ] Pancreatitis [ ] Acute [ ] Chronic [ x ] Recurrent [ ] Other diagnosis [ ] Unable to determine In addition, please specify: Present on Admission (POA): [ x ] Yes [ ] No [ ] Unable to determine For continuity of documentation, please document condition throughout progress notes and discharge summary. Thank You. CLINICAL INDICATORS - SIGNS / SYMPTOMS / LABS Lipase 407 on 12/24 and 292 on 12/25 - Labs Pancreatitis, status: Acute - PN 6/3 by William Lyles MD Pancreatitis, seems to be asymptomatic. Evidence of prior bouts on CT. May have a chronic component. Lipase is coming down - PN / by William Lyles MD RISK FACTORS Alcohol dependence - PN 6/ by William Lyles MD Alcoholic fatty liver - PN 6/ by William Lyles MD TREATMENT: IV fluids 12/26 to 4 - Medications Thiamine, folic acid - 12/24 to 12/27 - Medications (This form is maintained as a part of the permanent medical record) 2014 [email or web address]. All Rights Reserved Eloy [email or web address]
== END 2019-12-28 13:50 | disposition home or self-care (01) | DRG 897 ==
LOC: ERS 17:00 → 2NO 20:44
PROVIDERS: ADMIT Internal Medicine; ATTEND Internal Medicine
PROC: HZ2ZZZZ Detoxification Services for Substance Abuse Treatment (ICD-10-PCS; principal; 2019-12-26)
DX: F10.239 Alcohol dependence with withdrawal, unspecified (principal); S22.050A Wedge compression fracture of T5-T6 vertebra, initial encounter for closed fracture; S22.060A Wedge compression fracture of T7-T8 vertebra, initial encounter for closed fracture; S22.070A Wedge compression fracture of T9-T10 vertebra, initial encounter for closed fracture; E87.1 Hypo-osmolality and hyponatremia; K86.1 Other chronic pancreatitis; R56.9 Unspecified convulsions; Y90.0 Blood alcohol level of less than 20 mg/100 ml; E83.42 Hypomagnesemia; X58.XXXA Exposure to other specified factors, initial encounter; K70.0 Alcoholic fatty liver; D69.59 Other secondary thrombocytopenia; Z71.41 Alcohol abuse counseling and surveillance of alcoholic
CPT/HCPCS: 36415; 70450; 72146; 74177; 76705; 80053; 80061; 80306; 80307; 81003; 81015; 82607; 82746; 83690; 83735; 85025; 85610; 85730; 93005; 96361; 96365; 96366; 96374; 96375; C9113; J1630; J2060; J2405; J3411; J3475; J3480; J3490; J7042; Q9967

== ENCOUNTER 2020-01-01 15:35 | Outpatient (CLI) | payer SELFPAY ==
--- NOTE | 2020-01-01 17:58 | RAD ---
LEFT KNEE 4 VIEWS: HISTORY: Fall with injury. FINDINGS: Joint spaces are normally maintained. No fracture. No degenerative change. No evidence of joint ef fusion. No osseous abnormality. IMPRESSION: Negative left knee. POS: AGW
--- NOTE | 2020-01-01 17:59 | RAD ---
RIGHT KNEE 4 VIEWS: HISTORY: Fall with injury. FINDINGS: Medial and lateral joint spaces are normally maintained. No fracture or osseous abnormality. No bri dence of joint effusion. IMPRESSION: Negative right knee. POS: AGW
[2020-01-01 18:12] LABS: #Basophils 0.1 thou/uL (0.0-0.2); #Lymphocytes 1.8 thou/uL (1.20-3.40); #Monocytes 0.7 thou/uL (0.11-0.59); #Neutrophils 3.2 thou/uL (1.40-6.50); %Basophils 1.2 % (0.0-1.0); %Eosinophils 0.4 % (0.0-10.0); %Lymphocytes 31.7 % (21.0-51.0); %Monocytes 12.3 % (0.0-10.0); %Neutrophils 54.5 % (42.0-75.0); Hemoglobin 15.1 g/dL (14.0-18.0); Mean Corpuscular HGB CONC 33.9 g/dL (32.0-36.0); Mean Corpuscular Hemoglobin 31.6 pg (27.0-31.0); Mean Corpuscular Volume 93.2 fL (78.0-98.0); Mean Platelet Volume 7.8 fL (7.4-10.4); Platelet Count 218 thou/uL (130-400); RBC Distribution Width 11.1 % (11.5-14.5); Red Blood Cell (RBC) Count 4.78 mill/uL (4.70-6.10); White Blood Cell (WBC) Count 5.8 thou/uL (4.8-10.8)
[2020-01-01 18:26] LABS: ALT (SGPT) 45 U/L (8-55); AST (SGOT) 41 U/L (5-34); Albumin 4.1 g/dL (3.5-5.0); Alkaline Phosphatase 102 U/L (40-110); Anion Gap 15 mmol/L (10-20); BUN (Urea Nitrogen) 9 mg/dL (8.9-20.6); Bilirubin, Total 1.6 mg/dL (0.2-1.2); Calc. Creatinine Clearance 0 mL/min (70-130); Calcium 9.6 mg/dL (7.8-10.44); Carbon Dioxide 25 mmol/L (22-29); Chloride 97 mmol/L (98-107); Estimated GFR-MDRD 76; Globulin 3.7 g/dL (2.4-3.5); Glucose 97 mg/dL (70-105); Lipase 153 U/L (8-78); Potassium 3.3 mmol/L (3.5-5.1); Protein, Total 7.8 g/dL (6.0-8.3); Sodium 134 mmol/L (136-145)
== END 2020-01-01 15:36 | disposition home or self-care (01) ==
LOC: SCSRAD 15:35
PROVIDERS: ATTEND Family Medicine
DX: M25.561 Pain in right knee (principal); D61.818 Other pancytopenia; K86.0 Alcohol-induced chronic pancreatitis; M25.562 Pain in left knee
CPT/HCPCS: 36415; 80053; 82150; 83690; 85025

== ENCOUNTER 2020-09-22 21:02 | Emergency (ER) | payer SELFPAY | END 2020-09-22 22:53 | disposition left against medical advice (07) | LOC: ERS 21:02 | DX: F41.9 Anxiety disorder, unspecified (principal); F10.129 Alcohol abuse with intoxication, unspecified | CPT/HCPCS: 99284 ==

== ENCOUNTER 2021-07-10 09:04 | Inpatient (IN) | payer SELFPAY ==
[2021-07-10 09:37] LABS: Actual Bicarbonate (HCO3v) 29 mEq/L (22-28); Analyzer IN Cardio ER; Base Excess 7.5 mEq/L (-2.0 to +3.0); Calcium, Ionized (venous) 0.91 mmol/L (1.16-1.32); Chloride (VBG) 103 mmol/L (98-106); Hemoglobin (Hb) 13.5 g/dL (13.2-17.3); Potassium (VBG) 3.63 mmol/L (3.70-5.30); Sodium 143.7 mmol/L (133-146); pH (venous) 7.58 (7.32-7.43)
[2021-07-10 09:45] LABS: Hemoglobin 12.7 g/dL (14.0-18.0); Mean Corpuscular HGB CONC 33.3 g/dL (32.0-36.0); Mean Corpuscular Hemoglobin 32.3 pg (27.0-31.0); Mean Corpuscular Volume 96.8 fL (78.0-98.0); Mean Platelet Volume 6.3 fL (7.4-10.4); Platelet Count 170 thou/uL (130-400); Red Blood Cell (RBC) Count 3.92 mill/uL (4.70-6.10); White Blood Cell (WBC) Count 4.5 thou/uL (4.8-10.8)
[2021-07-10] MEDS ORDERED: Lorazepam 2 MG/ML VIAL ONE (09:48)
[2021-07-10 09:53] LABS: Acetaminophen Less than 6.0 mcg/mL (10.0-30.0); Alcohol 320 mg/dL (Less than 10); Salicylate Less than 8.0 mg/dL (15.0-30.0)
[2021-07-10 09:54] LABS: ALT (SGPT) 36 U/L (8-55); AST (SGOT) 39 U/L (5-34); Albumin 4.6 g/dL (3.5-5.0); Alkaline Phosphatase 76 U/L (40-110); Anion Gap 12 mmol/L (10-20); BUN (Urea Nitrogen) 11 mg/dL (8.9-20.6); Bilirubin, Total 0.4 mg/dL (0.2-1.2); Calc. Creatinine Clearance 0 mL/min (70-130); Calcium 9.7 mg/dL (7.8-10.44); Carbon Dioxide 34 mmol/L (22-29); Chloride 102 mmol/L (98-107); Globulin 3.2 g/dL (2.4-3.5); Glucose 92 mg/dL (70-105); Lipase 46 U/L (8-78); Potassium 3.7 mmol/L (3.5-5.1); Protein, Total 7.8 g/dL (6.0-8.3); Sodium 144 mmol/L (136-145)
[2021-07-10 10:02] LABS: Band 2 % (5-11); Lymphocytes 63 % (21-51); MDiff Complete? YES; Monocytes 8 % (0-10); Neutrophil 26 % (42-75); RBC Morphology Normal
[2021-07-10 10:57] LABS: Clarity Clear (Clear)
[2021-07-10 10:58] LABS: Bacteria/HPF None Seen HPF (None Seen); Bilirubin Negative (Negative); Blood, Urine Trace (Negative); Glucose, Urine (Dipstick) Normal (Negative); Ketone, Urine Negative (Negative); Leukocyte Negative Leu/uL (Negative); Nitrite Negative (Negative); Protein, Urine (Dipstick) 20 mg/dL (Neg-Trace); RBC/HPF 0-3 HPF (0-3); Specific Gravity, Urine 1.011 (1.002-1.036); Squamous Epithelial 0-3 HPF (0-3); Urobilinogen Normal mg/dL (Less than 2); WBC/HPF 0-3 HPF (0-3)
[2021-07-10 11:04] LABS: Amphetamine Not Detected (NotDetected); Barbiturates Screen Not Detected (NotDetected); Benzodiazepine Screen Not Detected (NotDetected); Cocaine Metabolite Screen Not Detected (NotDetected); Methadone Not Detected (NotDetected); Methamphetamine Not Detected (NotDetected); Opiate Screen Not Detected (NotDetected); Oxycodone Screen Not Detected (NotDetected); Phencyclidine (PCP) Not Detected (NotDetected); THC/Cannabinoid Screen Not Detected (NotDetected); Tricyclic Screen Not Detected (NotDetected)
[2021-07-10] MEDS ORDERED: Lorazepam 1 MG TAB PO PRN (16:54)
[2021-07-10] MEDS ORDERED: Ondansetron ODT 4 MG TAB PO PRN ×2 (16:54)
[2021-07-10] MEDS ORDERED: Labetalol HCl 100 MG/20 ML VIAL SLOW IVP PRN (16:54)
[2021-07-10] MEDS ORDERED: Electrolyte Replacement Protocol 1 EACH FS SCH (16:54)
[2021-07-10] MEDS ORDERED: Thiamine HCl 200 MG/2 ML VIAL SLOW IVP SCH (16:54)
[2021-07-10] MEDS ORDERED: Lorazepam 2 MG/ML VIAL IM PRN (16:54)
[2021-07-10] MEDS ORDERED: Ondansetron PF 4 MG/2 ML Vial IVP PRN (16:54)
[2021-07-10] MEDS ORDERED: Acetaminophen 500 MG TAB PO PRN (16:54)
[2021-07-10] MEDS ORDERED: Multivit, Therapeutic 1 TAB PO SCH (17:00)
[2021-07-10] MEDS ORDERED: Folic Acid 1 MG TAB PO SCH (17:00)
[2021-07-10 18:06] LABS: Phosphorus 2.7 mg/dL (2.3-4.7)
[2021-07-10] MEDS: Sodium Chloride 0.9% 1,000 ML IV SCH (18:21)
[2021-07-10] MEDS ORDERED: Folic Acid 1 MG TAB ONE (19:06)
[2021-07-10] MEDS ORDERED: Magnesium 2 GM/50 ML 2 GM in Premix Bag 1 BAG IVPB SCH (21:00)
[2021-07-10] MEDS ORDERED: Magnesium 2 GM/50 ML BAG (IN WATER) ONE (21:47)
[2021-07-10] MEDS ORDERED: Famotidine/PF 20 mg/2ml Vial ONE (21:47)
[2021-07-10] MEDS: Famotidine 20 MG TAB PO SCH (22:00)
[2021-07-10] MEDS ORDERED: Famotidine 20 MG TAB ONE (22:01)
[2021-07-11] MEDS: Lorazepam 1 MG TAB PO SCH ×4 (01:43→17:55)
[2021-07-11] MEDS: Sodium Chloride 0.9% 1,000 ML IV SCH ×3 (01:45→14:36)
[2021-07-11] MEDS ORDERED: Lorazepam 1 MG TAB ONE (02:28)
[2021-07-11 03:56] LABS: #Eosinphils 0.1 thou/uL (0.0-0.7); #Lymphocytes 1.6 thou/uL (1.20-3.40); #Monocytes 0.3 thou/uL (0.11-0.59); #Neutrophils 1.4 thou/uL (1.40-6.50); %Basophils 1.1 % (0.0-1.0); %Eosinophils 1.5 % (0.0-10.0); %Monocytes 9.9 % (0.0-10.0); %Neutrophils 40.5 % (42.0-75.0); Hemoglobin 12.2 g/dL (14.0-18.0); Mean Corpuscular HGB CONC 33.6 g/dL (32.0-36.0); Mean Corpuscular Hemoglobin 33.3 pg (27.0-31.0); Mean Corpuscular Volume 99.1 fL (78.0-98.0); Mean Platelet Volume 6.3 fL (7.4-10.4); Platelet Count 130 thou/uL (130-400); RBC Distribution Width 12.1 % (11.5-14.5); Red Blood Cell (RBC) Count 3.65 mill/uL (4.70-6.10); White Blood Cell (WBC) Count 3.4 thou/uL (4.8-10.8)
[2021-07-11] MEDS ORDERED: ALPRAZolam 0.25 MG TAB PO SCH (05:15)
[2021-07-11] MEDS ORDERED: ALPRAZolam 0.25 MG TAB ONE (05:20)
[2021-07-11 05:22] LABS: Phosphorus 3.7 mg/dL (2.3-4.7)
[2021-07-11 05:23] LABS: ALT (SGPT) 46 U/L (8-55); AST (SGOT) 56 U/L (5-34); Albumin 4.2 g/dL (3.5-5.0); Alkaline Phosphatase 55 U/L (40-110); Anion Gap 11 mmol/L (10-20); BUN (Urea Nitrogen) 12 mg/dL (8.9-20.6); Bilirubin, Total 1.1 mg/dL (0.2-1.2); Calc. Creatinine Clearance 0 mL/min (70-130); Calcium 9.9 mg/dL (7.8-10.44); Carbon Dioxide 32 mmol/L (22-29); Chloride 103 mmol/L (98-107); Globulin 2.8 g/dL (2.4-3.5); Glucose 87 mg/dL (70-105); Magnesium 1.9 mg/dL (1.6-2.6); Potassium 4.3 mmol/L (3.5-5.1); Sodium 142 mmol/L (136-145)
[2021-07-11] MEDS ORDERED: Magnesium 2 GM/50 ML 2 GM in Premix Bag 1 BAG IVPB SCH (06:00)
[2021-07-11] MEDS ORDERED: Magnesium 2 GM/50 ML BAG (IN WATER) ONE (06:09)
[2021-07-11] MEDS ORDERED: Folic Acid 1 MG TAB ONE (08:52)
[2021-07-11] MEDS: Folic Acid 1 MG TAB PO SCH (08:58)
[2021-07-11] MEDS: Thiamine HCl 200 MG/2 ML VIAL SLOW IVP SCH (08:59)
[2021-07-11] MEDS: Multivit, Therapeutic 1 TAB PO SCH (09:16)
[2021-07-11 11:38] LABS: Syphilis Antibody Nonreactive (Nonreactive); Syphilis Antibody Index 0.09 S/CO (<1.00 Non-Reactive)
[2021-07-11 13:23] VITALS: BMI 23.0
[2021-07-11] MEDS: Famotidine 20 MG TAB PO SCH ×2 (13:47→20:29)
[2021-07-11 14:32] LABS: SARS-CoV-2 NAA Rapid Test Not Detected (NotDetected)
[2021-07-11] MEDS ORDERED: Lorazepam 1 MG TAB PO PRN (16:24)
[2021-07-12] MEDS: Lorazepam 1 MG TAB PO SCH ×3 (00:10→11:20)
[2021-07-12] MEDS: Sodium Chloride 0.9% 1,000 ML IV SCH (01:10)
[2021-07-12] MEDS: Folic Acid 1 MG TAB PO SCH (08:53)
[2021-07-12] MEDS: Multivit, Therapeutic 1 TAB PO SCH (08:53)
[2021-07-12] MEDS: Famotidine 20 MG TAB PO SCH ×2 (08:53→21:02)
[2021-07-12] MEDS: Thiamine HCl 200 MG/2 ML VIAL SLOW IVP SCH (09:51)
[2021-07-12] MEDS ORDERED: Lorazepam 1 MG TAB PO PRN (16:25)
[2021-07-12] MEDS: Lorazepam 0.5 MG TAB PO SCH (18:39)
[2021-07-13] MEDS: Lorazepam 0.5 MG TAB PO SCH ×2 (00:26→05:48)
[2021-07-13 07:52] VITALS: BP 129/92; TEMP 97.6
[2021-07-13] MEDS: Multivit, Therapeutic 1 TAB PO SCH (09:15)
[2021-07-13] MEDS: Famotidine 20 MG TAB PO SCH (09:15)
[2021-07-13] MEDS: Folic Acid 1 MG TAB PO SCH (09:15)
[2021-07-13] MEDS ORDERED: Lorazepam 0.5 MG TAB PO PRN (16:25)
[2021-07-13] MEDS ORDERED: Thiamine 100 MG TAB PO SCH (21:00)
[2021-07-14] MEDS ORDERED: FLU VACC QS2021-22(6MOS UP)/PF 60 MCG/0.5 ML SYRINGE IM ONE (17:15)
== END 2021-07-13 11:10 | disposition short-term general hospital (02) | DRG 917 ==
LOC: ERS 09:04 → ERHOLD 16:34 → 2NO 07-11 12:55
PROVIDERS: ADMIT Family Medicine; ATTEND Internal Medicine
DX: T51.0X2A Toxic effect of ethanol, intentional self-harm, initial encounter (principal); G92.8 Other toxic encephalopathy; K86.0 Alcohol-induced chronic pancreatitis; M62.82 Rhabdomyolysis; F41.9 Anxiety disorder, unspecified; F10.229 Alcohol dependence with intoxication, unspecified; Y90.8 Blood alcohol level of 240 mg/100 ml or more; T43.592A Poisoning by other antipsychotics and neuroleptics, intentional self-harm, initial encounter; T42.6X2A Poisoning by other antiepileptic and sedative-hypnotic drugs, intentional self-harm, initial encounter
CPT/HCPCS: 36415; 36416; 51701; 71045; 80053; 80306; 80307; 81003; 81015; 82550; 82805; 83690; 83735; 84100; 84443; 85025; 86780; 93005; 96374; J2060; J3411; J3475; J7050; S0028; U0002